=== PATIENT | female | born 1990 | race Caucasian/White ===

== ENCOUNTER 2016-12-28 03:31 | Outpatient (CLI) | payer OTHER ==
--- NOTE | 2016-12-30 21:31 | HISTORY AND PHYSICAL ---
ADMITTED: 12/28/2016 PRIMARY CARE PROVIDER: NEDRA Gomez CHIEF COMPLAINT: 1. Lower abdominal pain HISTORY OF PRESENT ILLNESS: This is a 26-year-old -0-2-2 at 32-6/7 weeks gestation female presenting to OB triage with complaints of constant lower abdominal pain. She states that she has had severe back and uterus pain, starting at approximately 10 p.m. this evening. When it was not getting better, she decided to present to OB triage. She complains of dysuria, but no vaginal bleeding. Baby is active. She states that she is having some cramping back pain. No fevers or chills. MEDICAL/SURGICAL HISTORY: Past medical history: History of kidney stones, depression. -0-2-2, with C-sections x2. MEDICATIONS: 1. Citalopram 20 mg p.o. daily. 2. vitamins 1 tablet p.o. daily. ALLERGIES: 1. NONE. SOCIAL HISTORY: The patient is and lives with her , kids and her parents. They have 1 dog. She denies any alcohol, drug, or tobacco use. FAMILY HISTORY: Paternal grandfather with type 2 diabetes. Paternal grandmother with ovarian cancer. Maternal grandmother with unknown type of cancer. REVIEW OF SYSTEMS: A 12-point review of systems was done, it was negative except as per HPI. PHYSICAL EXAMINATION: VITAL SIGNS: Stable. GENERAL: This is a healthy-appearing female lying in bed in no apparent distress. HEENT: Head is atraumatic, normocephalic. Pupils are equal, round, and reactive to light with accommodation bilaterally. Trachea is midline. NECK: There is no JVD. HEART: S1, S2, regular rate and rhythm. There is a 2/6 systolic murmur, increased at the base. LUNGS: Clear to auscultation bilaterally. ABDOMEN: Soft, nontender, nondistended without hepatosplenomegaly or masses. Bowel sounds are active. EXTREMITIES: There is no CVAT. There is bilateral trace edema. LAB/IMAGING: Laboratories: UA is positive for a UTI with leuk esterase. heart tones shows a heart rate of 130 with moderate variability and accelerations. IMPRESSION: 1. This is a 26-year-old G3, P2-0-2-2 at 32-6/7 weeks' gestation, presenting to the hospital with complaints of lower abdominal pain and dysuria secondary to a urinary tract infection. PLAN: The patient was discharged to home on Keflex with instructions to follow up with her primary care physician within 5 days.
== END 2016-12-28 06:45 | disposition home or self-care (01) ==
LOC: OBC SRH 03:31 → TRANS SRH 03:35 → OBC SRH 06:45
PROC: 4A0HXCZ Measurement of Products of Conception, Cardiac Rate, External Approach (ICD-10-PCS; principal; 2016-12-28)
DX: O23.43 Unspecified infection of urinary tract in pregnancy, third trimester (principal); Z3A.32 32 weeks gestation of pregnancy

== ENCOUNTER 2017-01-31 22:28 | Outpatient (CLI) | payer OTHER | END 2017-02-01 02:11 | disposition home or self-care (01) | LOC: ED SRH 22:28 → EDSTATUS 22:35 → OB SRH 22:36 → OBC SRH 22:36 → OB SRH 22:37 → OBC SRH 02-01 02:11 | PROC: 4A0HXCZ Measurement of Products of Conception, Cardiac Rate, External Approach (ICD-10-PCS; principal; 2017-01-31) | DX: Z04.3 Encounter for examination and observation following other accident (principal); Z3A.38 38 weeks gestation of pregnancy; W10.9XXA Fall (on) (from) unspecified stairs and steps, initial encounter; Y92.008 Other place in unspecified non-institutional (private) residence as the place of occurrence of the external cause; Y99.8 Other external cause status ==